=== PATIENT | female | born 2000 | race Two or more races ===

== ENCOUNTER 2023-05-01 20:34 | Emergency (ER) | payer OTHER ==
[~2023-05-01] VITALS: Ht 160 cm; Wt 54.9 kg
[2023-05-01] MEDS ORDERED: ADVIL DUAL ACT1 EACH PO (23:57)
== END 2023-05-02 00:04 | disposition home or self-care (01) ==
LOC: ER 20:34
DX: S93.401A Sprain of unspecified ligament of right ankle, initial encounter (principal); X50.1XXA Overexertion from prolonged static or awkward postures, initial encounter; Y93.9 Activity, unspecified; Y92.89 Other specified places as the place of occurrence of the external cause